=== PATIENT | male | born 1960 | race Caucasian/White ===

== ENCOUNTER 2025-04-03 16:03 | Emergency (ER) | payer BC, OTHER ==
[2025-04-03 16:56] LABS: BASOPHILS ABSOLUTE AUTO 0.0 K/mm3 (0.0-0.2); BASOPHILS PERCENT AUTO 0.4 % (0.0-1.0); EOSINOPHILS ABSOLUTE AUTO 0.1 K/mm3 (0.0-0.4); EOSINOPHILS PERCENT AUTO 1.5 % (0.0-6.0); IMMATURE GRAN ABSOLUTE AUTO 0.02 K/mm3 (0.00-0.05); IMMATURE GRAN PERCENT AUTO 0.3 % (0.0-0.4); LYMPHOCYTES ABSOLUTE AUTO 1.9 K/mm3 (1.0-4.8); LYMPHOCYTES PERCENT AUTO 26.1 % (24.0-44.0); MEAN PLATELET VOLUME 9.8 fl (9.4-12.4); MONOCYTES ABSOLUTE AUTO 0.6 K/mm3 (0.0-0.8); MONOCYTES PERCENT AUTO 8.7 % (0.0-8.0); NEUTROPHILS ABSOLUTE AUTO 4.7 K/mm3 (1.8-7.7); NEUTROPHILS PERCENT AUTO 63.0 % (41.0-71.0); NRBC ABSOLUTE 0.00 (0.00-0.02); NRBC PERCENT 0.0 % (0.0-0.2); PLATELET COUNT,PLT 277 K/mm3 (150-400); RED BLOOD CELL COUNT 5.11 M/mm3 (4.52-5.90); WHITE BLOOD CELL COUNT,WBC 7.39 K/mm3 (3.9-11.3)
[2025-04-03 17:20] LABS: A/G RATIO 1.1 (1-2); ALANINE AMINOTRANSFERASE,ALT 25.0 U/L (16-63); BILIRUBIN TOTAL 0.3 mg/dL (0.2-1.0); BLOOD UREA NITROGEN,BUN 13.0 mg/dL (7-18); CHLORIDE,CL 104.0 mEq/L (98-107); GLUCOSE RANDOM 108.0 mg/dL (70-99); SODIUM,NA 140.0 mEq/L (136-145)
[2025-04-03 17:40] LABS: ASPARTATE AMNIOTRANSFERASE,AST 17.0 U/L (15-37); CARBON DIOXIDE,CO2 26.0 mEq/L (21-32); CREATININE 1.1 mg/dL (0.7-1.3); EST CRCL DRUG DOSING (CG) 66.5 mL/min; ESTIMATED GFR 75.0 mL/min (>60); POTASSIUM,K 3.6 mEq/L (3.5-5.1); PROTEIN TOTAL,TP 6.7 g/dl (6.4-8.2)
== END 2025-04-03 19:11 ==
LOC: JD.ED 16:03
DX: S70.12XA Contusion of left thigh, initial encounter (principal); W55.12XA Struck by horse, initial encounter; Y93.89 Activity, other specified
CPT/HCPCS: 36415; 76881-26-LT; 76881-LT; 80053; 85025; 86140; 93971-26-LT; 93971-LT; 99284